=== PATIENT | male | born 1945 | race Caucasian/White ===

== ENCOUNTER 2016-10-29 05:51 | Inpatient (IN) | payer OTHER ==
[2016-10-29] MEDS ORDERED: ceFAZolin 2 GM/DEXTROSE 100 ML IV ONE (06:00)
[2016-10-29] MEDS ORDERED: CHLORHEXIDINE GLUC HIBICLENS 118 ML BTL TP ONE (06:00)
[2016-10-29] MEDS ORDERED: LIDOCAINE 1% 5 ML SDV ONE (06:17)
[2016-10-29] MEDS ORDERED: BUPIVACAINE/EPI 0.25% 30 ML SDV ONE (06:27)
[2016-10-29] MEDS ORDERED: BACITRACIN 50,000 UNITS/10 ML SYR IRR ONE (06:27)
[2016-10-29] MEDS ORDERED: REMIFENTANIL HCL 1 MG VIAL ONE ×3 (07:07)
[2016-10-29] MEDS ORDERED: PROPOFOL/EMULSION 500 MG/50 ML BOTTLE IV ONE ×3 (07:07→10:09)
[2016-10-29] MEDS ORDERED: PROPOFOL 200 MG/20 ML VIAL ONE (07:07)
[2016-10-29] MEDS ORDERED: fentaNYL 100 MCG/2 ML INJ ONE ×2 (07:07→12:04)
[2016-10-29] MEDS ORDERED: THROMBIN (RECOMBINANT) 5,000 UNIT VIAL TP ONE (07:28)
[2016-10-29] MEDS ORDERED: DEXAMETHASONE 4 MG/ML VIAL ONE (07:45)
[2016-10-29] MEDS ORDERED: ONDANSETRON 4 MG/2 ML VIAL ONE (07:45)
[2016-10-29] MEDS ORDERED: ROCURONIUM 50 MG/5 ML VIAL ONE (07:45)
[2016-10-29] MEDS ORDERED: PHENYLEPHRINE 10 MG/ML SDV ONE (07:52)
[2016-10-29] MEDS ORDERED: GLYCOPYRROLATE 0.2 MG/1 ML VIAL ONE (07:52)
[2016-10-29] MEDS ORDERED: ATROPINE SULFATE 1 MG/10 ML SYR ONE (07:59)
[2016-10-29] MEDS ORDERED: HYDROmorphONE/DILAUDID 2 MG/ML INJ ONE (09:24)
[2016-10-29] MEDS ORDERED: ceFAZolin 1 GM VIAL ONE ×2 (10:29)
[2016-10-29] MEDS ORDERED: SUGAMMADEX SODIUM 200 MG/2 ML VIAL IVP ONE (10:29)
[2016-10-29] MEDS ORDERED: NALOXONE HCL 0.4 MG/ML INJ IVP PRN (11:09)
[2016-10-29] MEDS ORDERED: ACETAMINOPHEN 325 MG TAB PO PRN (11:09)
[2016-10-29] MEDS ORDERED: MAG HYDROX/AL HYDROX/SIMETH 30 ML UDCUP PO PRN (11:09)
[2016-10-29] MEDS ORDERED: LACTULOSE 20 GM/30 ML UDCUP PO PRN (11:09)
[2016-10-29] MEDS ORDERED: HYDROCODONE/APAP 10/325 TAB PO PRN (11:09)
[2016-10-29] MEDS ORDERED: diphenhydrAMINE 25 MG CAP PO PRN (11:09)
[2016-10-29] MEDS ORDERED: DIAZEPAM 10 MG/2 ML SYR IVP PRN (11:09)
[2016-10-29] MEDS ORDERED: MAGNESIUM HYDROXIDE 30 ML UDCUP PO PRN (11:09)
[2016-10-29] MEDS ORDERED: morphINE PCA 30 MG/30 ML PCA IV PRN (11:09)
[2016-10-29] MEDS ORDERED: BISACODYL 10 MG SUPP PR PRN (11:09)
[2016-10-29] MEDS ORDERED: DIAZEPAM 5 MG TAB PO PRN (11:09)
[2016-10-29] MEDS ORDERED: ONDANSETRON DISINTEGRATING 4 MG TAB PO PRN (11:09)
--- NOTE | 2016-10-29 11:09 | POSTOPPROG ---
Post Op Note Date of Operation: 10/29/16 Surgeon: Kev Horvath Senior Infrastructure Engineer: Jordy Turk PA-C Anesthesiologist: Faraz Casatñeda Anesthesia: GET(General Endotracheal) Pre-op Diagnosis: Cervical stenosis C3-7, DJD Post-op Diagnosis: same Indication: neck and arm pain and spinal cord compression Procedure: C3-7 ACDF Findings: Stensis Inf/Abcess present in the surg proc area at time of surgery?: No EBL: 50-100 Drains: Larry Arechiga (to bulb suction)
--- NOTE | 2016-10-29 11:20 | SOAPPROG ---
SOAP Progress Note Assessment/Plan: Assessment: POST OP CHECK doing well after C3-7 ACDF Plan: Hard collar MADDISON to bulb suction transfer to floor per protocol from PACU 10/29/16 11:17 Subjective: awake, comfortable, following commands Objective: Neuro: PERRLA KOVACS, sens +LT follows commands PERRLA Vitals: HR: 65 BP: 143/87 O2: 96% face mask ICD10 Worksheet Patient Problems: Problems Problem Status Onset Cervical stenosis of spinal canal Acute - ICD10 Problem Qualifiers (1) Cervical stenosis of spinal canal
[2016-10-29] MEDS: ONDANSETRON 4 MG/2 ML VIAL IVP PRN ×2 (14:55→18:38)
[2016-10-29] MEDS: NS W/ 20 KCl/L 1,000 ML IV SCH (15:03)
[2016-10-29] MEDS: POLYETHYLENE GLYCOL 3350 17 GM PKT PO SCH ×2 (18:13→19:45)
[2016-10-29] MEDS: SENNOSIDES/DOCUSATE SODIUM TAB PO SCH (19:28)
[2016-10-29] MEDS: morphINE SR 15 MG TAB PO SCH (19:28)
[2016-10-29] MEDS ORDERED: SCOPOLAMINE HYDROBROMIDE 1.5 MG PATCH TD PRN (19:49)
[2016-10-29] MEDS: PROMETHAZINE HCL 25 MG/ML INJ IV PRN (20:05)
[2016-10-29] MEDS ORDERED: FAMOTIDINE 20 MG/NACL 50 ML IV SCH (21:00)
[2016-10-30] MEDS: NS W/ 20 KCl/L 1,000 ML IV SCH ×2 (05:14→18:09)
[2016-10-30] MEDS: OXYCODONE/APAP 5/325 TAB PO PRN ×3 (05:20→18:02)
[2016-10-30] MEDS: ONDANSETRON 4 MG/2 ML VIAL IVP PRN (05:21)
[2016-10-30 06:00] LABS: % IMMATURE GRANULYOCYTES 0.3 % (0.0-1.1); ABSOLUTE IMMATURE GRANULOCYTES 0.04 10^3/uL (0.00-0.10); ADD DIFF? NO; ADD MORPH? NO; ADD SCAN? NO; ATYPICAL LYMPHOCYTE FLAG 0 (0-99); FRAGMENT RBC FLAG 0 (0-99); HEMATOCRIT 44.4 % (40.0-51.0); HEMOGLOBIN 14.8 g/dL (13.7-17.5); LEFT SHIFT FLG 0 (0-99); LIPEMIA HEMOLYSIS FLAG 80 (0-99); MEAN CELL HEMOGLOBIN 30.5 pg (27.9-34.1); MEAN CELL HEMOGLOBIN CONCENTR. 33.3 g/dL (32.4-36.7); MEAN CELL VOLUME 91.5 fL (81.5-99.8); MEAN PLATELET VOLUME 9.6 fL (8.7-11.7); PLATELET CLUMPS FLAG 0 (0-99); PLATELET COUNT 166 10^3/uL (150-400); RED BLOOD CELL COUNT 4.85 10^6/uL (4.40-6.38)
[2016-10-30 06:07] LABS: ANION GAP 10 mEq/L (8-16); CALCIUM 8.4 mg/dL (8.5-10.4); CARBON DIOXIDE 24 mEq/l (22-31); CHLORIDE 104 mEq/L (97-110); CREATININE 1.1 mg/dL (0.7-1.3); GLOMERULAR FILTRATION RATE > 60; GLUCOSE 110 mg/dL (70-100); POTASSIUM 4.5 mEq/L (3.5-5.2); SODIUM 138 mEq/L (134-144)
[2016-10-30] MEDS: POLYETHYLENE GLYCOL 3350 17 GM PKT PO SCH ×3 (08:52→21:57)
[2016-10-30] MEDS: FAMOTIDINE 20 MG TAB PO SCH ×2 (08:52→20:22)
[2016-10-30] MEDS: ENOXAPARIN 40 MG/0.4 ML SYR SC SCH (08:52)
[2016-10-30] MEDS: morphINE SR 15 MG TAB PO SCH ×2 (08:52→20:22)
[2016-10-30] MEDS: SENNOSIDES/DOCUSATE SODIUM TAB PO SCH ×2 (08:52→20:23)
--- NOTE | 2016-10-30 11:32 | SOAPPROG ---
SOAP Progress Note Assessment/Plan: Assessment: doing well after C3-7 ACDF Swallowing ok this AM Neuro stable Plan: Continue Hard collar MADDISON to bulb suction CPM today with PT/OT Xrays today if he can tolerate it Subjective: sitting up in bed doing OK denies new numbness or tingling Able to swallow water this AM Objective: Vital Signs Temp Pulse Resp BP Pulse Ox 36.6 C 66 16 120/59 L 95 10/30/16 07:49 10/30/16 07:49 10/30/16 07:49 10/30/16 07:49 10/30/16 07:49 Laboratory Results 10/30/16 05:10 10/30/16 05:10 10/29/16 10/30/16 10/31/16 05:59 05:59 05:59 Intake Total 3575 Output Total 2165 Balance 1410 Neuro: KOVACS, Sens+LT Dressing Dry MADDISON: 15ml ICD10 Worksheet Patient Problems: Problems Problem Status Onset Cervical stenosis of spinal canal Acute - ICD10 Problem Qualifiers (1) Cervical stenosis of spinal canal
[2016-10-30] MEDS: PROMETHAZINE HCL 25 MG/ML INJ IV PRN (12:31)
[2016-10-30] MEDS: METHOCARBAMOL 750 MG TAB PO PRN (14:30)
[2016-10-31] MEDS: OXYCODONE/APAP 5/325 TAB PO PRN (01:28)
[2016-10-31] MEDS: METHOCARBAMOL 750 MG TAB PO PRN ×2 (01:28→16:41)
--- NOTE | 2016-10-31 07:36 | SOAPPROG ---
SOAP Progress Note Assessment/Plan: Assessment: 70 yo M POD #2 C3-7 ACDF Plan: neuro: stable and doing well overall :) some dysphagia, will see how things progress with ST PT/OT scd/mello/lovenox for dvt prophylaxis cervical x-rays pending try to dc home today if dysphagia improves please call with neuro changes discussed with Dr Anyi white JP until discharge 10/31/16 07:34 Subjective: + neck pain, some issues with swallowing. no arm pain, no weakness. Objective: Vital Signs Temp Pulse Resp BP Pulse Ox 37.3 C 68 16 123/71 H 94 10/31/16 04:00 10/31/16 04:00 10/31/16 04:00 10/31/16 04:00 10/31/16 04:00 Laboratory Results 10/30/16 05:10 10/30/16 05:10 10/30/16 10/31/16 11/01/16 05:59 05:59 05:59 Intake Total 3575 1024 Output Total 2165 3720 Balance 1410 -2696 AAOX4, +FC PERRL, EOMI, no facial droop 5/5 + light touch C/D/I ICD10 Worksheet Patient Problems: Problems Problem Status Onset Cervical stenosis of spinal canal Acute
[2016-10-31] MEDS: morphINE SR 15 MG TAB PO SCH ×2 (08:06→21:01)
[2016-10-31] MEDS: SENNOSIDES/DOCUSATE SODIUM TAB PO SCH ×2 (08:07→21:01)
[2016-10-31] MEDS: FAMOTIDINE 20 MG TAB PO SCH ×2 (08:07→21:01)
[2016-10-31] MEDS: ENOXAPARIN 40 MG/0.4 ML SYR SC SCH (08:07)
[2016-10-31] MEDS: POLYETHYLENE GLYCOL 3350 17 GM PKT PO SCH ×3 (08:07→21:01)
--- NOTE | 2016-10-31 15:51 | GOP ---
DATE OF OPERATION: 10/29/2016 SURGEON: Kev Horvath MD PROBATION SUPERVISOR: CYNTHIA Rendon ANESTHESIA: General endotracheal. PREOPERATIVE DIAGNOSIS: 1. Severe multilevel cervical spondylitic myelopathies. 2. Severe multilevel degenerative disk disease and disk herniations with severe central canal steno sis and spinal cord compression. 3. Straightening of the cervical spine with loss of lordosis. POSTOPERATIVE DIAGNOSIS: 1. Severe multilevel cervical spondylitic myelopathies. 2. Severe multilevel degenerative disk disease and disk herniations with severe central canal steno sis and spinal cord compression. 3. Straightening of the cervical spine with loss of lordosis. PROCEDURE PERFORMED: 1. Complete C3-4, C4-5, C5-6, and C6-7 anterior cervical diskectomies and arthrodesis with 4 struct ural PEEK interbody spacers, local autograft, and demineralized bone matrix. 2. Partial C4, C5, and C6 vertebral corpectomies for decompression of spinal canal. 3. Placement of LnK CastleLoc-P anterior cervical plate from C3 through C7. 4. Use of intraoperative microscopy and fluoroscopy. FINDINGS: ESTIMATED BLOOD LOSS: 200 cc. INDICATIONS: The patient is a 70-year-old man with severe multilevel degenerative disk disease in h is cervical spine with spondylosis and spinal stenosis with spinal cord compression and progressive myelopathy. He presents now for a multilevel surgical decompression, stabilization, and realignment of his sagittal lordosis. DESCRIPTION OF PROCEDURE: After informed consent was obtained, the patient was taken to the operati ng room and placed in the supine position with the head in the halter retractor system. The anterio r cervical region was prepped and draped in a sterile fashion. After fluoroscopic localization of t he correct levels, the subcutaneous and intramuscular tissues were infiltrated with local anesthesia . A horizontal incision was created in a skin crease at approximately the C5 vertebral body. This was carried through the platysma using the monopolar electrocautery and carried in the avascular stalin ne between the sternocleidomastoid and carotid sheath laterally and the strap muscles, trachea, and esophagus medially down to the prevertebral fascia, which was carefully incised with Metzenbaum scis sors. The C3-4, C4-5, C5-6, and C6-7 interspaces were identified and re-verified using intraoperati ve fluoroscopy. There were very large osteophytes that were carefully dissected out and removed and harvested for local autograft. The distraction pins were then serially inserted at the C3-4, C4-5, C5-6, and C6-7 levels during which time complete diskectomies were performed at each individual lev el with removal of the posterior longitudinal ligament and the posteriorly protruding osteophytes. Bilateral foraminotomies were performed. There was a fairly extensive amount of drilling required a t each of the levels significantly involving the vertebral body such that with drilling the superior and inferior endplates of the middle vertebral bodies at C4, C5, and C6 these amounted to approxima tely 50% of the vertebral bodies for partial C4, C5, and C6 vertebral corpectomies. Following adequ ate decompression, meticulous hemostasis was achieved as best we could with Gelfoam soaked in thromb in and irrigation. The interspaces were then gently packed with appropriately sized structural allo graft spacers packed with local autograft and demineralized bone matrix in the center of each graft. These were placed under fluoroscopic image guidance. The distraction was removed as the grafts we re placed. Following this, a CastleLoc-P LnK anterior cervical plate was then placed from C3 throug h C7. It was marginally difficult to place the screws in the middle vertebral bodies due to the fac t that so much of the vertebral bodies had been drilled away, but I was able to get screws in each o f the levels. The locking mechanisms were engaged after re-verification of good position of the stalin te, screws, and interbody spacers using the biplanar fluoroscopy. The wound was then again irrigate d with copious antibiotic irrigation. The anterior hole of the plate and the uncovertebral joints w ere very gently packed with some residual local autograft from the osteophytectomies and partial cor pectomies. A drain was then placed. The subcutaneous and intramuscular tissues were re-infiltrated with local anesthesia, and the wound was closed in a layered fashion using interrupted Vicryl sutur es followed by Steri-Strips on the skin. COMPLICATIONS: None. DISPOSITION: The patient was extubated and transported to the recovery room in stable condition. /[id number]/MODL
[2016-10-31] MEDS ORDERED: DEXAMETHASONE 10 MG/ML VIAL IV ONE (17:00)
[2016-11-01 01:02] VITALS: RESP 16
--- NOTE | 2016-11-01 07:57 | SOAPPROG ---
SOAP Progress Note Assessment/Plan: Assessment: doing well after C3-7 ACDF Swallowing ok this AM. Received steroids yesterday which helped Neuro stable Plan: Continue Hard collar MADDISON to bulb suction CPM today with PT/OT/ST DC planning Subjective: asleep, wakes easily and states he is swallowing "better" today. Pain well controlled. Objective: Vital Signs Temp Pulse Resp BP Pulse Ox 36.6 C 63 16 124/75 H 95 11/01/16 00:00 11/01/16 00:00 11/01/16 00:00 11/01/16 00:00 11/01/16 00:00 Laboratory Results 10/30/16 05:10 10/30/16 05:10 10/31/16 11/01/16 11/02/16 05:59 05:59 05:59 Intake Total 1024 1800 Output Total 3720 1125 Balance -2696 675 Post op xrays show well positioned hardware neuro: awake, alert, KOVACS, SEns +LT Dressing: CDI MADDISON: 10ml in bulb this AM ICD10 Worksheet Patient Problems: Problems Problem Status Onset Cervical stenosis of spinal canal Acute - ICD10 Problem Qualifiers (1) Cervical stenosis of spinal canal
[2016-11-01 08:59] VITALS: BP 148/74; PULSE 64; TEMP 97.5; O2SAT 98
[2016-11-01] MEDS: FAMOTIDINE 20 MG TAB PO SCH (09:07)
[2016-11-01] MEDS: POLYETHYLENE GLYCOL 3350 17 GM PKT PO SCH (09:07)
[2016-11-01] MEDS: ENOXAPARIN 40 MG/0.4 ML SYR SC SCH (09:07)
[2016-11-01] MEDS: SENNOSIDES/DOCUSATE SODIUM TAB PO SCH (09:07)
[2016-11-01] MEDS: morphINE SR 15 MG TAB PO SCH (09:07)
--- NOTE | 2016-11-01 09:24 | PDIAF ---
- Diagnosis Diagnosis: Cervical stenosis. C3-7 fusion Code Status: Full Code - Medication Management Discharge Medications: Medications to Continue on Transfer Acetaminophen [Tylenol ES 500 mg (*)] 500 - 1,000 mg PO Q6-8PRN PRN 10/07/16 [ Last Taken 10/22/16] Methocarbamol [Robaxin 750 mg (*)] 750 mg PO QID PRN #60 tab 11/01/16 [Last Taken Unknown] Polyethylene Glycol 3350 [Miralax 17 gm (*)] 17 gm PO TID #0 pkt 11/01/16 [Last Taken Unknown] Sennosides/Docusate Sodium [Senokot-S] 1 - 2 tab PO BID #0 tab 11/01/16 [Last Taken Unknown] morphINE SR [Ms Contin/Oramorph 15 mg (*)] 15 mg PO BID #60 tab 11/01/16 [Last Taken Unknown] Discharge Medications: Refer to the Discharge Home Medication list for PRN reason. - Orders Services needed: Home Care, Physical Therapy Home Care Face to Face: I certify that this patient was under my care and that I had the required [id number] encounter meeting the encounter requirements on the discharge day. My findings support the fact that the patient is homebound as defined in CMS Chapter 7 Medicare Benefits Manual 30.1.1, The condition of the patient is such that there exists a normal inability to leave home and consequently, leaving home would require a considerable and taxing effort. Diet Recommendation: other (soft texture diet) Diet Texture: Regular Texture Diet, Dysphagia 2 - Mechanically Altered - Chopped , Ground (Soft texture diet), Thin Liquids, Meds Whole in Puree, Meds Crushed in Puree Wound Care Instructions: Keep steri strips in place until post op appt Activity/Weight Bearing Restrictions: no lifting over 5lbs. No cervical ROM Equipment: Hard cervical collar - Follow Up Care Current Providers and Referrals: ADRIEN JACKSON [Other]
== END 2016-11-01 15:56 | disposition home or self-care (01) | DRG 473 ==
LOC: F3N 05:51 → OBSVTOIN 11:16 → F3N 13:04 → F3E 17:48
PROVIDERS: ADMIT Neurological Surgery; ATTEND Neurological Surgery
PROC: 0RT30ZZ Resection of Cervical Vertebral Disc, Open Approach (ICD-10-PCS; principal; 2016-10-29 07:15)
PROC: 0RG20A0 Fusion of 2 or more Cervical Vertebral Joints with Interbody Fusion Device, Anterior Approach, Anterior Column, Open Approach (ICD-10-PCS; principal; 2016-10-29 07:15)
PROC: 00NW0ZZ Release Cervical Spinal Cord, Open Approach (ICD-10-PCS; principal; 2016-10-29 07:15)
PROC: 4A1004G Monitoring of Central Nervous Electrical Activity, Intraoperative, Open Approach (ICD-10-PCS; principal; 2016-10-29 07:15)
DX: M47.12 Other spondylosis with myelopathy, cervical region (principal); M50.30 Other cervical disc degeneration, unspecified cervical region; M50.20 Other cervical disc displacement, unspecified cervical region; G47.33 Obstructive sleep apnea (adult) (pediatric)
CPT/HCPCS: 92526-GN; 92610-GN; 97116-GP; 97161-GP; 97165-GO; 97530-GP; 97535-GO; C1713; G8978-GP-CJ; G8979-GP-CI; G8980-GP-CI; G8987-GO-CJ; G8988-GO-CI; G8989-GO-CI; G8996-GN-CJ; G8997-GN-CI; J0461; J0690; J1100; J1170; J1650; J2370; J2405; J2550; J2704; J3010